=== PATIENT | female | born 1965 | race Caucasian/White ===

== ENCOUNTER 2017-10-18 17:31 | Emergency (ER) | payer MEDICAID ==
[~2017-10-18 17:31] MED LIST: AMOX-429 PO; CLON0.5T4 PO; HYDR50CA50 PO; IBUP-2077 PO; TYL3 PO
== END 2017-10-18 17:49 | disposition home or self-care (01) ==
LOC: EDH 17:31
DX: L02.212 Cutaneous abscess of back [any part, except buttock and flank] (principal); Z98.51 Tubal ligation status

== ENCOUNTER 2018-02-13 15:20 | Emergency (ER) | payer MEDICAID ==
[~2018-02-13 15:20] MED LIST changes: +CLON0.5T12 PO; -CLON0.5T4 PO
[2018-02-13 15:51] LABS: BASOPHILS % (AUTO) 0.9 % (0.0-5.0); EOSINOPHILS % (AUTO) 2.2 % (0.0-8.0); LYMPHOCYTES % (AUTO) 28.2 % (21.0-51.0); MEAN CORPUSCULAR HEMOGLOBIN 29.3 pg (27.0-33.0); MEAN CORPUSCULAR HGB CONC 33.9 g/dL (32.0-36.0); MEAN CORPUSCULAR VOLUME 86.5 fL (79-99); MONOCYTES % (AUTO) 7.9 % (3.0-13.0); NEUTROPHILS % (AUTO) 60.8 % (40.0-77.0); PLATELET COUNT (AUTO) 238 K/uL (130-400); RED BLOOD CELL COUNT(AUTO) 4.86 MIL/uL (4.00-5.50); RED CELL DISTRIBUTION WIDTH 13.5 % (11.0-15.5)
[2018-02-13 16:04] LABS: CREATININE 0.9 mg/dL (0.5-1.5); POTASSIUM 4.3 mmol/L (3.5-5.1)
[2018-02-13 16:08] LABS: ALBUMIN 3.6 g/dL (3.5-5.0); BILIRUBIN,DIRECT 0.1 mg/dL (0.0-0.3); BILIRUBIN,TOTAL 0.2 mg/dL (0.2-1.0); TOTAL PROTEIN, SERUM 7.9 g/dL (6.0-8.3)
[2018-02-13] MEDS ORDERED: ONDANSETRON HCL MDV 20ML 2 MG/ML VIAL ONE (16:23)
[2018-02-13] MEDS ORDERED: SODIUM CHLORIDE 0.9% 1000ML 1,000 ML IV ONE (16:23)
[2018-02-13] MEDS ORDERED: KETOROLAC TROMETHAMINE 30MG/ML ONE (16:24)
[2018-02-13] MEDS ORDERED: IOPAMIDOL-370 75 ML VIAL IV ONE (16:35)
[2018-02-13] MEDS ORDERED: FENTANYL CITRATE PF 50 MCG/1 ML 2ML VIAL ONE (17:58)
[2018-02-13 18:22] LABS: APPEARANCE,URINE Clear (CLEAR); BILIRUBIN,URINE Negative (NEGATIVE); COLOR,URINE Yellow (YELLOW); GLUCOSE, URINE (UA) Negative (NEGATIVE); KETONES,URINE Negative (NEGATIVE); LEUKOCYTE ESTERASE ,URINE Small (NEGATIVE); NITRATE,URINE Negative (NEGATIVE); OCCULT BLOOD,URINE Trace (NEGATIVE); PROTEIN,URINE Negative (NEGATIVE); UROBILINOGEN,URINE 0.2 mg/dL (0.2-1.0)
[2018-02-13 19:16] LABS: RBC,URINE None Seen /HPF (0-1)
[2018-02-13 19:17] LABS: BACTERIA,URINE Few /HPF (None Seen); WBC,URINE 0-1 /HPF (0-1)
== END 2018-02-13 20:04 | disposition home or self-care (01) ==
LOC: EDH 15:20
DX: G89.18 Other acute postprocedural pain (principal); R11.0 Nausea; F90.9 Attention-deficit hyperactivity disorder, unspecified type; Z88.5 Allergy status to narcotic agent; Z98.890 Other specified postprocedural states
CPT/HCPCS: 36415; 74177; 80048; 80076; 81001; 82550; 83690; 84484; 85025; 85378; 93005; 96361; 96374; 96375; 99285; J1885; J3010; J7030; Q9967

== ENCOUNTER → 2019-12-25 | Outpatient (CLI) | payer MEDICAID ==
[~2019-12-25] MED LIST changes: -CLON0.5T12 PO; +CLON0.5T4 PO
== END | disposition home or self-care (01) ==
LOC: RAH 08:17
PROVIDERS: ATTEND Internal Medicine
DX: Z12.31 Encounter for screening mammogram for malignant neoplasm of breast (principal); N63.14 Unspecified lump in the right breast, lower inner quadrant; N63.21 Unspecified lump in the left breast, upper outer quadrant; I70.0 Atherosclerosis of aorta
CPT/HCPCS: 76775; 77067

== ENCOUNTER → 2020-01-14 | Outpatient (CLI) | payer MEDICAID | END | disposition home or self-care (01) | LOC: RAH 09:10 | PROVIDERS: ATTEND Internal Medicine | DX: R92.8 Other abnormal and inconclusive findings on diagnostic imaging of breast (principal); N63.0 Unspecified lump in unspecified breast; R92.2 Inconclusive mammogram | CPT/HCPCS: 76641; 77066 ==